=== PATIENT | male | born 1960 | race African-American/Black ===

== ENCOUNTER 2022-01-30 12:03 | Emergency (ER) | payer SELFPAY | END 2022-01-30 12:40 | disposition home or self-care (01) | DRG 951 | LOC: ED 12:03 → LWOBS 12:40 | DX: Z53.21 Procedure and treatment not carried out due to patient leaving prior to being seen by health care provider (principal) ==

== ENCOUNTER 2022-04-19 09:22 | Emergency (ER) | payer MEDICARE, MEDICAID ==
[~2022-04-19] VITALS: Ht 175.3 cm; Wt 81.6 kg
[2022-04-19] MEDS ORDERED: METFORMIN HCL500 M1 PO (10:26)
[2022-04-19] MEDS ORDERED: ZPAK PO (11:14)
[2022-04-19] MEDS ORDERED: PERMETHRIN5 % EX (11:14)
[2022-04-19] MEDS ORDERED: VENTOLIN HFA108 MCG PO (11:14)
[2022-04-20] MEDS ORDERED: ZPAK PO (09:37)
[2022-04-20] MEDS ORDERED: PERMETHRIN5 % EX (09:37)
[2022-04-20] MEDS ORDERED: VENTOLIN HFA108 MCG PO (09:37)
== END 2022-04-19 11:35 | disposition home or self-care (01) ==
LOC: ED 09:22
DX: J06.9 Acute upper respiratory infection, unspecified (principal); B86 Scabies; I10 Essential (primary) hypertension; E11.9 Type 2 diabetes mellitus without complications; J44.9 Chronic obstructive pulmonary disease, unspecified; Z79.84 Long term (current) use of oral hypoglycemic drugs; Z20.822 Contact with and (suspected) exposure to COVID-19